=== PATIENT | male | born 1980 | race Two or more races ===

== ENCOUNTER 2016-09-27 22:43 | Emergency (ER) | payer SELFPAY ==
[2016-09-27 22:55] VITALS: TEMP 98.7; BMI 32.1
[2016-09-27 23:16] LABS: AUTOMATED BASOPHIL 0.5 % (0-2); AUTOMATED EOSINOPHIL 1.4 % (0-5); AUTOMATED MONOCYTE 5.8 % (3-10); AUTOMATED NEUTROPHIL 51.3 % (45-76); MPV 7.9 fL (7.4-10.4)
--- NOTE | 2016-09-27 23:21 | DIRPT ---
CLINICAL DATA: 35-year-old male with chest pain EXAM: CHEST 2 VIEW COMPARISON: None. FINDINGS: The heart size and mediastinal contours are within normal limits. Both lungs are clear. The visualized skeletal structures are unremarkable. IMPRESSION: No active cardiopulmonary disease. Electronically Signed By: Jonas Kingston M.D. On: 09/27/2016 23:18
[2016-09-27 23:23] LABS: PARTIAL THROMB. TIME 26.5 SEC (22-35); PT-INR 1.1
[2016-09-27 23:25] LABS: BLOOD UREA NITROGEN 16 MG/DL (9-20); CALCIUM 8.7 MG/DL (8.4-10.2); CALCULATED OSMOLALITY 269 MOs/Kg (270-290); CHLORIDE 102 mEq/L (98-107); GLUCOSE 98 MG/DL (70-99); SODIUM LEVEL 139 mEq/L (137-146); TOTAL PROTEIN 7.6 G/DL (6.3-8.2)
[2016-09-27 23:51] LABS: ALL NEG? YES; MDMA* NEG (NEGATIVE); METHAMPHETAMINES NEG (NEGATIVE); OXYCODONE NEG (NEGATIVE)
[2016-09-28 00:07] LABS: LEUKOCYTES/URINE NEG (NEGATIVE); NITRITE/URINE NEG (NEGATIVE); URINE OCCULT BLOOD NEG (NEG/TRACE)
--- NOTE | 2016-09-28 00:13 | EDPRACDOC ---
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 PT STATES THE PAINS ARE SHARP, NON-RADIATING, BRIEF AND WORSE WITH ANXIETY. DENIES FEVER, COUGH, SHOB, ABD PAIN, N/V/D. NO APPARENT DISTRESS. NO PMH/MEDS/SBI. Chest Pain Location: Reports: Left Chest Pain Radiation: Reports: None Symptoms Occur: Reports: Suddenly, At Rest Cardiac Risk Factors: Reports: None Cardiac History of: Reports: None PE Risk Factors: Reports: None Prehospital Care: Reports: None Pain Came On: Reports: Suddenly Pain Status: Resolved Pain Description: Reports: Sharp Pain Severity: Moderate Pain Worsens With: Reports: Nothing Pain Improves With: Reports: Nothing Associated Signs and Symptoms: Reports: None ED Past Medical History - History Reviewed Yes Nurses notes reviewed and agree except as marked - Patient Medical History Psychological History: Denies: Depression Systemic History: Denies: Cancer - Social Medical History Smoking Status: Never smoker EDM Review of Systems - Review of Systems ROS Negative Except as Marked: Yes All systems reviewed and were negative except as marked Constitutional: No Symptoms Reported Respiratory: No Symptoms Reported Cardiovascular: Chest Pain Gastrointestinal: No Symptoms Reported Genitourinary: No Symptoms Reported Neurological: No Symptoms Reported Musculoskeletal: No Symptoms Reported Integumentary: No Symptoms Reported - Physical Exam Constitutional: Alert (Awake), No apparent distress Oriented to: Time, Person, Place Last recorded Vital Signs: Last Vital Signs Temp 98.7 F 09/27/16 22:51 Pulse 72 09/27/16 22:51 Resp 20 09/27/16 22:51 BP 152/86 09/27/16 22:51 Pulse Ox 100 09/27/16 22:51 Oxygen Pulse Oxygen Saturation 100 O2 Device Room Air Oxygen Flow Rate Fraction of Inspired Oxygen ( FIO2) - HEENT Head: Normal Eye Exam: Normal Neck: Normal, Denies Pain, Midline - Respiratory/Cardiovascular Respiratory: Normal - CTA Cardiovascular: Normal - GI Auscultation: Normal Palpation: Normal Tenderness: Non tender - Musculoskeletal Back: Normal Extremities: Normal - Integumentary Skin: Normal Lymphatics: Normal - Neurologic Cerebellar: Normal Mood Description: Normal Thought: Coherent Perception: Normal ED Chest Pain Exam - Respiratory/Cardiovascular Respiratory: Normal - CTA Cardiovascular/Chest: Normal Chest Palpation: Normal - Action ASA given in the ED: No - Results 09/27/16 22:58 09/27/16 22:58 WBC 10.4 xk/uL (3.8-10.8) 09/27/16 22:58 RBC 5.09 xM/uL (4.70-6.10) 09/27/16 22:58 Hgb 15.2 g/dL (14.0-18.0) 09/27/16 22:58 Hct 44.6 % (42-52) 09/27/16 22:58 MCV 88 fL (80-94) 09/27/16 22:58 MCH 29.8 pg (27-32) 09/27/16 22:58 MCHC 34.1 g/dl (33-36) 09/27/16 22:58 RDW 12.9 % (11.5-14.5) 09/27/16 22:58 Plt Count 257 xk/uL (130-400) 09/27/16 22:58 MPV 7.9 fL (7.4-10.4) 09/27/16 22:58 Neut % (Auto) 51.3 % (45-76) 09/27/16 22:58 Lymph % (Auto) 41.0 % (17-44) 09/27/16 22:58 [place] % (Auto) 5.8 % (3-10) 09/27/16 22:58 Eos % (Auto) 1.4 % (0-5) 09/27/16 22:58 Baso % (Auto) 0.5 % (0-2) 09/27/16 22:58 Absolute Neuts (auto) 5.30 xk/uL (1.7-8.2) 09/27/16 22:58 Absolute Lymphs (auto) 4.26 xk/uL (0.65-4.75) 09/27/16 22:58 PT 11.2 SEC (9.2-11.2) 09/27/16 22:58 INR 1.1 09/27/16 22:58 APTT 26.5 SEC (22-35) 09/27/16 22:58 Sodium 139 mEq/L (137-146) 09/27/16 22:58 Potassium 4.1 mEq/L (3.5-5.1) 09/27/16 22:58 Chloride 102 mEq/L (98-107) 09/27/16 22:58 Carbon Dioxide 26 mMOL/L (22-33) 09/27/16 22:58 Anion Gap 15 mEq/L (8-16) 09/27/16 22:58 BUN 16 MG/DL (9-20) 09/27/16 22:58 Creatinine 0.80 MG/DL (0.66-1.25) 09/27/16 22:58 Estimated GFR (MDRD) > 60 mL/min (>=60) 09/27/16 22:58 Glucose 98 MG/DL (70-99) 09/27/16 22:58 Calculated Osmolality 269 MOs/Kg (270-290) L 09/27/16 22:58 Calcium 8.7 MG/DL (8.4-10.2) 09/27/16 22:58 Total Bilirubin 0.5 MG/DL (0.2-1.3) 09/27/16 22:58 AST 24 IU/L (17-59) 09/27/16 22:58 ALT 33 IU/L (21-72) 09/27/16 22:58 Alkaline Phosphatase 48 IU/L (38-126) 09/27/16 22:58 Troponin I < 0.01 ng/mL (<.04) 09/27/16 22:58 [id number] Pept 26 pg/mL (0-450) 09/27/16 22:58 Total Protein 7.6 G/DL (6.3-8.2) 09/27/16 22:58 Albumin 4.2 G/DL (3.5-5.0) 09/27/16 22:58 Urine Color Pale yell0w 09/27/16 23:45 Urine Clarity Clear 09/27/16 23:45 Urine pH 6.0 (5.0-8.0) 09/27/16 23:45 Ur Specific [place] 1.005 09/27/16 23:45 Urine Protein Neg (NEG/TRACE) 09/27/16 23:45 Urine Glucose (UA) Neg (NEGATIVE) 09/27/16 23:45 Urine Ketones Neg (NEGATIVE) 09/27/16 23:45 Urine Occult Blood Neg (NEG/TRACE) 09/27/16 23:45 Urine Nitrite Neg (NEGATIVE) 09/27/16 23:45 Urine Bilirubin Neg (NEGATIVE) 09/27/16 23:45 Urine Urobilinogen 0.2 MG/DL (0-1) 09/27/16 23:45 Ur Leukocyte Esterase Neg (NEGATIVE) 09/27/16 23:45 Urine Bacteria Few (NEG/FEW) 09/27/16 23:45 Urine Opiates Screen Neg (NEGATIVE) 09/27/16 23:45 Ur Oxycodone Screen Neg (NEGATIVE) 09/27/16 23:45 Urine Methadone Screen Neg (NEGATIVE) 09/27/16 23:45 Ur Barbiturates Screen Neg (NEGATIVE) 09/27/16 23:45 Ur Tricyclics Screen Neg (NEGATIVE) 09/27/16 23:45 Ur Phencyclidine Scrn Neg (NEGATIVE) 09/27/16 23:45 Ur Amphetamines Screen Neg (NEGATIVE) 09/27/16 23:45 U Methamphetamines Scrn Neg (NEGATIVE) 09/27/16 23:45 Urine MDMA Screen Neg (NEGATIVE) 09/27/16 23:45 U Benzodiazepines Scrn Neg (NEGATIVE) 09/27/16 23:45 Urine Cocaine Screen Neg (NEGATIVE) 09/27/16 23:45 Ur THC Screen Neg (NEGATIVE) 09/27/16 23:45 Lab Results 09/27/16 09/27/16 09/27/16 23:45 23:45 22:58 WBC RBC Hgb Hct MCV MCH MCHC RDW Plt Count MPV Neut % (Auto) Lymph % (Auto) [place] % (Auto) Eos % (Auto) Baso % (Auto) Absolute Neuts (auto) Absolute Lymphs (auto) PT 11.2 INR 1.1 APTT 26.5 Sodium Potassium Chloride Carbon Dioxide Anion Gap BUN Creatinine Estimated GFR (MDRD) Glucose Calculated Osmolality Calcium Total Bilirubin AST ALT Alkaline Phosphatase Troponin I Lyv-[id number]-Bitetqscxfm Pept Total Protein Albumin Urine Color Pale yell0w Urine Clarity Clear Urine pH 6.0 Ur Specific [place] 1.005 Urine Protein Neg Urine Glucose (UA) Neg Urine Ketones Neg Urine Occult Blood Neg Urine Nitrite Neg Urine Bilirubin Neg Urine Urobilinogen 0.2 Ur Leukocyte Esterase Neg Urine Bacteria Few Urine Opiates Screen Neg Ur Oxycodone Screen Neg Urine Methadone Screen Neg Ur Barbiturates Screen Neg Ur Tricyclics Screen Neg Ur Phencyclidine Scrn Neg Ur Amphetamines Screen Neg U Methamphetamines Scrn Neg Urine MDMA Screen Neg U Benzodiazepines Scrn Neg Urine Cocaine Screen Neg Ur THC Screen Neg 09/27/16 09/27/16 22:58 22:58 WBC 10.4 RBC 5.09 Hgb 15.2 Hct 44.6 MCV 88 MCH 29.8 MCHC 34.1 RDW 12.9 Plt Count 257 MPV 7.9 Neut % (Auto) 51.3 Lymph % (Auto) 41.0 [place] % (Auto) 5.8 Eos % (Auto) 1.4 Baso % (Auto) 0.5 Absolute Neuts (auto) 5.30 Absolute Lymphs (auto) 4.26 PT INR APTT Sodium 139 Potassium 4.1 Chloride 102 Carbon Dioxide 26 Anion Gap 15 BUN 16 Creatinine 0.80 Estimated GFR (MDRD) > 60 Glucose 98 Calculated Osmolality 269 L Calcium 8.7 Total Bilirubin 0.5 AST 24 ALT 33 Alkaline Phosphatase 48 Troponin I < 0.01 [id number]-[id number] Pept 26 Total Protein 7.6 Albumin 4.2 Urine Color Urine Clarity Urine pH Ur Specific [place] Urine Protein Urine Glucose (UA) Urine Ketones Urine Occult Blood Urine Nitrite Urine Bilirubin Urine Urobilinogen Ur Leukocyte Esterase Urine Bacteria Urine Opiates Screen Ur Oxycodone Screen Urine Methadone Screen Ur Barbiturates Screen Ur Tricyclics Screen Ur Phencyclidine Scrn Ur Amphetamines Screen U Methamphetamines Scrn Urine MDMA Screen U Benzodiazepines Scrn Urine Cocaine Screen Ur THC Screen Laboratory Results - last 24 hr 09/27/16 09/27/16 09/27/16 22:58 22:58 22:58 WBC 10.4 RBC 5.09 Hgb 15.2 Hct 44.6 MCV 88 MCH 29.8 MCHC 34.1 RDW 12.9 Plt Count 257 MPV 7.9 Neut % (Auto) 51.3 Lymph % (Auto) 41.0 [place] % (Auto) 5.8 Eos % (Auto) 1.4 Baso % (Auto) 0.5 Absolute Neuts (auto) 5.30 Absolute Lymphs (auto) 4.26 PT 11.2 INR 1.1 APTT 26.5 Sodium 139 Potassium 4.1 Chloride 102 Carbon Dioxide 26 Anion Gap 15 BUN 16 Creatinine 0.80 Estimated GFR (MDRD) > 60 Glucose 98 Calculated Osmolality 269 L Calcium 8.7 Total Bilirubin 0.5 AST 24 ALT 33 Alkaline Phosphatase 48 Troponin I < 0.01 [id number]-[id number]-Xlbxbezjtzy Pept 26 Total Protein 7.6 Albumin 4.2 Urine Color Urine Clarity Urine pH Ur Specific [place] Urine Protein Urine Glucose (UA) Urine Ketones Urine Occult Blood Urine Nitrite Urine Bilirubin Urine Urobilinogen Ur Leukocyte Esterase Urine Bacteria Urine Opiates Screen Ur Oxycodone Screen Urine Methadone Screen Ur Barbiturates Screen Ur Tricyclics Screen Ur Phencyclidine Scrn Ur Amphetamines Screen U Methamphetamines Scrn Urine MDMA Screen U Benzodiazepines Scrn Urine Cocaine Screen Ur THC Screen 09/27/16 09/27/16 23:45 23:45 WBC RBC Hgb Hct MCV MCH MCHC RDW Plt Count MPV Neut % (Auto) Lymph % (Auto) [place] % (Auto) Eos % (Auto) Baso % (Auto) Absolute Neuts (auto) Absolute Lymphs (auto) PT INR APTT Sodium Potassium Chloride Carbon Dioxide Anion Gap BUN Creatinine Estimated GFR (MDRD) Glucose Calculated Osmolality Calcium Total Bilirubin AST ALT Alkaline Phosphatase Troponin I [id number] Pept Total Protein Albumin Urine Color Pale yell0w Urine Clarity Clear Urine pH 6.0 Ur Specific [place] 1.005 Urine Protein Neg Urine Glucose (UA) Neg Urine Ketones Neg Urine Occult Blood Neg Urine Nitrite Neg Urine Bilirubin Neg Urine Urobilinogen 0.2 Ur Leukocyte Esterase Neg Urine Bacteria Few Urine Opiates Screen Neg Ur Oxycodone Screen Neg Urine Methadone Screen Neg Ur Barbiturates Screen Neg Ur Tricyclics Screen Neg Ur Phencyclidine Scrn Neg Ur Amphetamines Screen Neg U Methamphetamines Scrn Neg Urine MDMA Screen Neg U Benzodiazepines Scrn Neg Urine Cocaine Screen Neg Ur THC Screen Neg Laboratory Results 09/27/16 22:58 09/27/16 22:58 - EKG EKG #1 EKG Time: 22:50 -: Yes EKG interpreted by me Rate: bpm: 76 [place]: Normal Rhythm: NSR Block: None Hypertrophy: None ST: Normal - Additional Information WHEN PT POINTS TO WHERE HE IS HURTING, IT IS MORE LUQ ABDOMINAL PAIN; NO PAIN NOW. NO CARDIAC RISK FACTORS. ASSOCIATED WITH ANXIETY. LIKELY GERD. Decision Time to Discharge: 00:14 - Departure Disposition: Home Condition: Good Final Diagnosis: Gastroesophageal reflux disease Instructions: Gastroesophageal Reflux Disease (ED) Education/Counseling Given To: Patient Education/Counseling Given Regarding: Diagnosis, Treatment, Follow Up Referrals: None,No Provider [Primary Care Provider] - One Week Prescriptions: Omeprazole [Prilosec] 40 mg PO DAILY #60 cap Additional Instructions: AVOID FATTY/SPICY/GREASY FOODS. FOLLOW UP WITH PCP.
[2016-09-28 00:35] VITALS: BP 142/80; PULSE 70
== END 2016-09-28 00:34 | disposition home or self-care (01) ==
LOC: ED 22:43
DX: K21.9 Gastro-esophageal reflux disease without esophagitis (principal)
CPT/HCPCS: 36415; 71020; 80053; 80307; 81001; 83880; 84484; 85025; 85610; 85730; 93005; 99284